=== PATIENT | female | born 1960 | race Caucasian/White ===

== ENCOUNTER 2020-07-27 09:23 | Day surgery (SDC) | payer BC ==
[~2020-07-27] VITALS: Ht 160.1 cm; Wt 131.7 kg
[2020-07-27] VITALS (16 sets, daily range): BP systolic 81–115; BP diastolic 34–84; PULSE 61–78
[2020-07-27] MEDS ORDERED: ASPIRIN E.C. 8181 MG PO (10:04)
[2020-07-27] MEDS ORDERED: ZESTRIL 20MG TA20 MG PO (10:05)
[2020-07-27] MEDS ORDERED: TRELEGY ELLIPT1 EACH IH (10:06)
[2020-07-27] MEDS ORDERED: VALTREX1 GM PO (10:06)
[2020-07-27 10:29] LABS: HEMOGLOBIN 11.5 g/dl (12.5-16.0); MEAN CELL VOLUME 101 fl (80.0-100.0); MEAN CORPUSCULAR HEMOGLOBIN 33 pg (27.0-31.0); MEAN CORPUSCULAR HGB CONC 33 g/dl (33.0-37.0); MEAN PLATELET VOLUME 9.7 fl (7.4-10.4); PLATELET COUNT 352 K/mm3 (130-400); RED BLOOD COUNT 3.47 M/mm3 (4.10-5.30); REDCELL DISTRIBUTION WIDTH-CV 13.1 % (11.5-14.5)
[2020-07-27 10:30] LABS: HEMATOCRIT 35.1 % (37.0-47.0); INR 1.1 (0.8-3.0); PROTHROMBIN TIME 12.3 SECONDS (9.7-12.8)
[2020-07-27 10:33] LABS: PARTIAL THROMBOPLASTIN TIME 32.9 SECONDS (26.0-37.0)
[2020-07-27 10:35] LABS: CALCIUM 11.7 mg/dL (8.4-10.2); CREATININE, serum 1.08 (0.52-1.25); POTASSIUM 4.4 mmol/L (3.4-5.0)
--- NOTE | 2020-07-27 10:48 | NUR ---
Bethany, medical device engineer notified of pt c/o mid back pain that pt initially thought was due to positioning in bed. After readjusting, pain persisted and started to radiate into chest. During this time, pt also c/o lightheadedness. BPs during this time were low, 3 different cuffs utilized to find best fit due to arm circumfrence. Last reading of 92/84. HOB was also lowered. Pt now states pain improving, down to 4/10 from initial 8/10 rating.
--- NOTE | 2020-07-27 11:26 | NUR ---
500 ml bolus completed per order. Rate decreased to 100ml/hr. Pt states she is no longer lightheaded. Pain to mid back improved but not resolved. Pt respositioned again in bed with additional relief in pain. Call light in reach. Will continue to monitor.
--- NOTE | 2020-07-27 15:46 | NUR ---
DC instructions reviewed with pt and . Both express understanding. Air has been removed from TR band in 2ml increments with no bleeding or issue. Rt radial puncture site dressed with 2x2 and bandaid. BPs have stayed stable during recovery, and pt has been steady on feet without complaint or further lightheadedness. IV DC'd with catheter intact and bleeding controlled. Pt was assisted out to 's car by wheelchair.
== END 2020-07-27 15:54 | disposition home or self-care (01) ==
LOC: COL.CAR
PROVIDERS: Internal Medicine Cardiovascular Disease
DX: R06.09 Other forms of dyspnea (principal); R94.39 Abnormal result of other cardiovascular function study; I10 Essential (primary) hypertension; G89.29 Other chronic pain; M25.512 Pain in left shoulder; I07.1 Rheumatic tricuspid insufficiency; E66.01 Morbid (severe) obesity due to excess calories; M19.90 Unspecified osteoarthritis, unspecified site; Z90.89 Acquired absence of other organs; Z98.51 Tubal ligation status; Z87.891 Personal history of nicotine dependence; Z79.899 Other long term (current) drug therapy; Z88.8 Allergy status to other drugs, medicaments and biological substances; Z80.3 Family history of malignant neoplasm of breast; Z83.3 Family history of diabetes mellitus; Z80.1 Family history of malignant neoplasm of trachea, bronchus and lung; Z83.6 Family history of other diseases of the respiratory system
CPT/HCPCS: C1769; J1644; J2250; J3010; Q9967

== ENCOUNTER 2020-08-03 00:10 | Emergency (ER) | payer BC ==
[~2020-08-03] VITALS: Ht 160 cm; Wt 133.2 kg
[~2020-08-03 00:10] MED LIST: ASPIRIN E.C. 8181 MG PO; TRELEGY ELLIPT1 EACH IH; VALTREX1 GM PO; ZESTRIL 20MG TA20 MG PO
[2020-08-03 00:18] VITALS: TEMP 97.6
[2020-08-03 00:35] LABS: BASO # 0.1 (0.0-0.2); BASO % 0.4 % (0.0-2.0); EOS # 0.1 (0.0-0.7); EOS % 0.5 % (0-4.0); GRAN # 10.8 (1.4-6.5); GRAN % 77.4 % (42.2-75.2); HEMOGLOBIN 11.5 g/dl (12.5-16.0); LYMPH # 2.1 (1.2-3.4); LYMPH % 14.9 % (20.0-51.0); MEAN CELL VOLUME 99 fl (80.0-100.0); MEAN CORPUSCULAR HEMOGLOBIN 33 pg (27.0-31.0); MEAN CORPUSCULAR HGB CONC 33 g/dl (33.0-37.0); MEAN PLATELET VOLUME 9.5 fl (7.4-10.4); MONO # 0.9 (0.1-0.6); MONO % 6.2 % (1.7-9.3); PLATELET COUNT 420 K/mm3 (130-400); REDCELL DISTRIBUTION WIDTH-CV 13.2 % (11.5-14.5)
[2020-08-03 00:37] LABS: HEMATOCRIT 34.6 % (37.0-47.0)
[2020-08-03 00:49] LABS: ALANINE AMINOTRANSFERASE 65 U/L (4-34); ALBUMIN 4.2 gm/dL (3.5-5.0); ALKALINE PHOSPHATASE 70 U/L (50-136); ANION GAP 11 mmol/L (7-16); AST,SGOT 37 U/L (15-37); BILIRUBIN,TOTAL 0.4 mg/dL (0.0-1.0); BLOOD UREA NITROGEN 55 mg/dL (7-17); C-REACTIVE PROTEIN 1.4 mg/dL (0.0-0.9); CARBON DIOXIDE 26 mmol/L (22-30); CHLORIDE 94 mmol/L (98-107); CREATININE, serum 2.11 (0.52-1.25); GLUCOSE 106 mg/dL (74-106); POTASSIUM 4.1 mmol/L (3.4-5.0); SODIUM 132 mmol/L (137-145)
[2020-08-03 00:53] LABS: CALCIUM 13.6 mg/dL (8.4-10.2)
[2020-08-03 00:59] LABS: TROPONIN-I < 0.012 ng/mL (0.000-0.035)
[2020-08-03 01:17] LABS: TSH w REFLEX 0.667 uIU/mL (0.465-4.680)
[2020-08-03 02:15] LABS: COLLECTION METHOD CLEAN CATCH
[2020-08-03 02:23] LABS: MUCOUS Present /lpf; PH 5 (5-8); SQUAMOUS EPITHELIAL None Seen /hpf; URINE APPEARANCE Hazy; URINE BACTERIA Rare /hpf; URINE BILIRUBIN Negative (NEGATIVE); URINE BLOOD Negative (NEGATIVE); URINE COLOR Yellow; URINE GLUCOSE Negative (NEGATIVE); URINE KETONE Negative (NEGATIVE); URINE LEUKOCYTE ESTERASE Negative (NEGATIVE); URINE NITRATE Negative (NEGATIVE); URINE PROTEIN(semi-quant) Negative (NEGATIVE); URINE RBC 0-2 /hpf; URINE UROBILINOGEN Negative (NEGATIVE)
[2020-08-03 04:06] VITALS: BP 114/87; PULSE 77
== END 2020-08-03 04:06 ==
LOC: COL.ER 00:10
PROVIDERS: Emergency Medicine
DX: E83.52 Hypercalcemia (principal); I95.9 Hypotension, unspecified; R65.21 Severe sepsis with septic shock; J45.909 Unspecified asthma, uncomplicated; Z20.822 Contact with and (suspected) exposure to COVID-19; Z88.4 Allergy status to anesthetic agent; Z87.891 Personal history of nicotine dependence; Z79.82 Long term (current) use of aspirin
CPT/HCPCS: J2543; J7030; J7040; J7060; J7120

== ENCOUNTER 2020-08-25 08:56 | Day surgery (SDC) | payer BC ==
[~2020-08-25] VITALS: Ht 160 cm; Wt 129.2 kg
[2020-08-25] MEDS ORDERED: AIRDUO DIGIHAL1 EAC1 IH (09:31)
[2020-08-25] MEDS ORDERED: VALTREX1 GM PO (09:33)
[2020-08-25] MEDS ORDERED: TYLENOL 500MG500 MG PO (09:34)
[2020-08-25 10:02] VITALS: BP 118/74; PULSE 91; TEMP 98.8
[2020-08-25 11:05] VITALS: BP 109/96; PULSE 84; TEMP 98.4
--- NOTE | 2020-08-25 11:05 | NUR ---
pt to [facility] via cart from endo lab, walked to chair, gait stable, in room, call light in reach, takes snack, no c/o
[2020-08-25 11:20] VITALS: BP 100/62; PULSE 83
[2020-08-25 11:35] VITALS: BP 113/54; PULSE 82
[2020-08-25 11:55] VITALS: BP 106/54; PULSE 90
--- NOTE | 2020-08-25 11:55 | NUR ---
in earlier to see pt, iv d'cd intact. up in room dressed. Discharge inst. given to pt on precautions, activity and followup with verbal understanding. Pt discharged via w/c to car at 1205
== END 2020-08-25 12:05 | disposition home or self-care (01) ==
LOC: SDCO 08:56
DX: Z12.11 Encounter for screening for malignant neoplasm of colon (principal); K62.89 Other specified diseases of anus and rectum; I10 Essential (primary) hypertension; M19.90 Unspecified osteoarthritis, unspecified site; Z20.822 Contact with and (suspected) exposure to COVID-19; Z88.8 Allergy status to other drugs, medicaments and biological substances; Z90.89 Acquired absence of other organs; Z87.891 Personal history of nicotine dependence; Z98.51 Tubal ligation status; Z80.3 Family history of malignant neoplasm of breast; Z83.3 Family history of diabetes mellitus; Z80.1 Family history of malignant neoplasm of trachea, bronchus and lung; Z80.6 Family history of leukemia
CPT/HCPCS: J2704; J3010; J7030

== ENCOUNTER 2020-08-28 16:17 | Emergency (ER) | payer BC ==
[~2020-08-28] VITALS: Ht 154.9 cm; Wt 129.5 kg
[~2020-08-28 16:17] MED LIST changes: +AIRDUO DIGIHAL1 EAC1 IH; +TYLENOL 500MG500 MG PO
[2020-08-28 16:28] VITALS: TEMP 97.7
[2020-08-28 17:10] LABS: BASO # 0.1 (0.0-0.2); BASO % 0.7 % (0.0-2.0); EOS # 0.3 (0.0-0.7); EOS % 2.9 % (0-4.0); GRAN # 7.2 (1.4-6.5); GRAN % 69.1 % (42.2-75.2); HEMOGLOBIN 11.2 g/dl (12.5-16.0); MEAN CELL VOLUME 101 fl (80.0-100.0); MEAN CORPUSCULAR HEMOGLOBIN 33 pg (27.0-31.0); MEAN CORPUSCULAR HGB CONC 32 g/dl (33.0-37.0); MEAN PLATELET VOLUME 10.6 fl (7.4-10.4); MONO # 0.7 (0.1-0.6); MONO % 7.1 % (1.7-9.3); PLATELET COUNT 382 K/mm3 (130-400); RED BLOOD COUNT 3.43 M/mm3 (4.10-5.30)
[2020-08-28 17:19] LABS: HEMATOCRIT 34.7 % (37.0-47.0)
[2020-08-28 17:29] LABS: ALBUMIN 4.2 gm/dL (3.5-5.0); BILIRUBIN,TOTAL 0.1 mg/dL (0.0-1.0); CALCIUM 11.5 mg/dL (8.4-10.2); CREATININE, serum 1.25 (0.52-1.25); POTASSIUM 4.9 mmol/L (3.4-5.0); TOTAL PROTEIN 7.8 gm/dL (6.4-8.2)
[2020-08-28 18:03] LABS: MAGNESIUM 0.8 mg/dL (1.6-2.3)
[2020-08-28 21:23] VITALS: BP 115/69; PULSE 80
== END 2020-08-28 21:23 | disposition home or self-care (01) ==
LOC: COL.ER 16:17
PROVIDERS: Nurse Practitioner
DX: E83.42 Hypomagnesemia (principal); Z87.891 Personal history of nicotine dependence; Z79.82 Long term (current) use of aspirin
CPT/HCPCS: J3475

== ENCOUNTER 2020-08-31 13:09 | Outpatient (CLI) | payer BC ==
[~2020-08-31] VITALS: Ht 154.9 cm; Wt 131.0 kg
[2020-08-31 13:45] VITALS: BP 104/68; PULSE 78
[2020-08-31] MEDS ORDERED: MAG-OX 400400 MG/TAB PO (13:53)
--- NOTE | 2020-08-31 15:45 | NUR ---
INFUSION COMPLETED, IV D'CD INTACT, PT STATES IS GETTING LAB TOMORROW AM AT OFFICE
== END 2020-08-31 15:52 | disposition home or self-care (01) ==
LOC: EUO 13:09
DX: E83.42 Hypomagnesemia (principal)
CPT/HCPCS: J3475

== ENCOUNTER 2020-09-01 13:01 | Outpatient (CLI) | payer BC ==
[~2020-09-01] VITALS: Ht 154.9 cm; Wt 128.6 kg
[~2020-09-01 13:01] MED LIST changes: +MAG-OX 400400 MG/TAB PO
[2020-09-01 13:31] VITALS: BP 101/62; PULSE 88; TEMP 97.9
[2020-09-01 15:58] VITALS: BP 116/75; PULSE 81
== END 2020-09-01 18:13 | disposition home or self-care (01) ==
LOC: EUO 13:01
DX: E83.42 Hypomagnesemia (principal)
CPT/HCPCS: J3475

== ENCOUNTER 2020-09-06 14:00 | Outpatient (RCR) | payer BC ==
[2020-09-05 14:18] VITALS: BP 97/70; PULSE 86; TEMP 98
[2020-09-05 14:34] VITALS: BP 110/73; PULSE 84; TEMP 98
[2020-09-05 15:02] VITALS: BP 116/70; PULSE 81; TEMP 98
[2020-09-05 15:32] VITALS: BP 118/72; PULSE 81; TEMP 98
[2020-09-05 16:04] VITALS: BP 120/78; PULSE 78; TEMP 98
[~2020-09-06] VITALS: Ht 154.9 cm; Wt 135.0 kg
[2020-09-06 14:12] VITALS: BP 106/66; PULSE 85; TEMP 98.1
[2020-09-06 16:20] VITALS: BP 114/67; PULSE 82
== END 2020-09-06 14:30 | disposition home or self-care (01) ==
LOC: EUO 14:00
DX: E83.42 Hypomagnesemia (principal)
CPT/HCPCS: J3475

== ENCOUNTER → 2020-09-06 | Outpatient (CLI) | payer BC | LOC: COL.RAD 12:58 | DX: Z12.2 Encounter for screening for malignant neoplasm of respiratory organs (principal); Z87.891 Personal history of nicotine dependence ==

== ENCOUNTER 2020-09-22 13:30 | Outpatient (RCR) | payer BC ==
[2020-09-15 16:00] VITALS: BP 105/72; PULSE 80; TEMP 98.3
[~2020-09-22] VITALS: Ht 154.9 cm; Wt 135.6 kg
[2020-09-22 14:22] VITALS: BP 109/67; PULSE 76; TEMP 98
--- NOTE | 2020-09-22 15:41 | NUR ---
medication done, iv d'cd intact, pt discharged states has lab work next week
== END 2020-09-22 15:41 | disposition home or self-care (01) ==
LOC: EUO 13:30
DX: E83.42 Hypomagnesemia (principal)
CPT/HCPCS: J3475

== ENCOUNTER 2021-10-29 12:35 | Emergency (ER) | payer OTHER ==
[~2021-10-29] VITALS: Ht 157.5 cm; Wt 121.4 kg
[2021-10-29 12:51] VITALS: BP 99/61; TEMP 98.1
[2021-10-29 17:06] VITALS: PULSE 63
== END 2021-10-29 17:06 | disposition home or self-care (01) ==
LOC: COL.ER 12:35
DX: E83.42 Hypomagnesemia (principal); Z87.891 Personal history of nicotine dependence; Z28.310 Unvaccinated for COVID-19
CPT/HCPCS: J3475

== ENCOUNTER → 2021-12-11 | Outpatient (CLI) | payer OTHER | LOC: COL.RAD 09:48 | DX: Z12.2 Encounter for screening for malignant neoplasm of respiratory organs (principal); Z87.891 Personal history of nicotine dependence ==